=== PATIENT | female | born 1980 | race Caucasian/White ===

== ENCOUNTER → 2018-07-09 | Outpatient (CLI) | payer OTHER ==
--- NOTE | 2018-07-09 10:38 | Diagnostic Imaging Report ---
INDICATION: Neck pain and arm tingling. TIME OF EXAMINATION: 10:13 AM. FINDINGS: The curvature and alignment of the cervical spine are normal. C1 through C6 are identified with clarity. C7 and the cervicothoracic junction are not well seen on these images. The odontoid is intact. The prevertebral tissues are normal. No fractures are seen. IMPRESSION: No acute abnormality is detected. Dictated by: Dictated on workstation # [id number]
== END ==
LOC: RAD FS 10:00
PROVIDERS: ATTEND Family Medicine
DX: M54.2 Cervicalgia (principal)
CPT/HCPCS: 72040

== ENCOUNTER → 2019-03-27 | Outpatient (CLI) | payer OTHER ==
--- NOTE | 2019-03-27 14:53 | Diagnostic Imaging Report ---
PROCEDURE: MR imaging of the cervical spine without contrast. TECHNIQUE: Multiplanar, multisequence MR imaging of the cervical spine was performed without contrast. INDICATION: Neck pain and tingling. COMPARISON: No prior studies are available for comparison. FINDINGS: Alignment of the cervical spine is normal. The marrow signal intensity is unremarkable. Disc spaces are fairly well maintained. Minimal disc desiccation is seen at multiple levels. Cervical cord does show normal homogeneous signal intensity and normal morphology. Craniocervical junction is unremarkable. No focal disc protrusion is seen. No central canal or neural foraminal stenosis is identified. Paraspinous tissues are unremarkable. IMPRESSION: Unremarkable MRI of the cervical spine. No focal disc protrusion, central canal or neural foraminal stenosis is detected. Dictated by: Dictated on workstation # [id number]
== END ==
LOC: RAD 12:17
PROVIDERS: ATTEND Nurse Practitioner
DX: M50.30 Other cervical disc degeneration, unspecified cervical region (principal)
CPT/HCPCS: 72141

== ENCOUNTER 2019-05-12 15:22 | Emergency (ER) | payer OTHER ==
[~2019-05-12] VITALS: Ht 155 cm; Wt 66.3 kg
--- NOTE | 2019-05-12 15:57 | ED Back Pain ---
General Chief Complaint: Back Problems Stated Complaint: UPPER BACK PAIN,SOA Nursing Triage Note: Has had upper back pain that has been getting progressively worse over the past sevral weeks. Pain is currently rated at 6/10. Has also been mildly short off breath for the past two days. Saw a neurologist last week for some neck tingling and was recommended to do physical therapy. Nursing Sepsis Screen: No Definite Risk History of Present Illness Date Seen by Provider: May 12, 2019 Time Seen by Provider: 15:51 Initial Comments 38-year-old female reports several weeks of thoracic back pain from a particular spot in the midline denies fall or injury, is unaware of any relevant history no chest pain there may be slight shortness of breath, she feels this pain when she takes a deep breath has had some nausea but no vomiting or diarrhea or abdominal pain she's had no fever or cough Allergies and Home Medications Allergies Coded Allergies: Iodinated Contrast Media (Verified Allergy, Unknown, 05/12/19) Penicillins (Verified Allergy, Unknown, 05/12/19) erythromycin base (Verified Allergy, Unknown, 05/12/19) morphine (Verified Allergy, Unknown, 05/12/19) Patient Home Medication List Home Medication List Reviewed: Yes Review of Systems Constitutional: No fever EENTM: no symptoms reported; No throat pain Respiratory: No cough; short of breath (maybe minimal) Cardiovascular: No chest pain, No palpitations, No syncope Gastrointestinal: No abdominal pain, No diarrhea, No vomiting Genitourinary: No no symptoms reported Past Akalanb-Rhbchp-Gqmqxm Hx Patient Social History Alcohol Use: Denies Use Recreational Drug Use: No Smoking Status: Never a Smoker 2nd Hand Smoke Exposure: No Recent Foreign Travel: No Contact w/Someone Who Travel: No Recent Infectious Disease Expo: No Recent Hopitalizations: No Seasonal Allergies Seasonal Allergies: No Past Medical History Surgeries: Yes Hysterectomy Respiratory: No Cardiac: No Neurological: No Genitourinary: No Gastrointestinal: No Musculoskeletal: No Endocrine: Yes Hypothyroidsim HEENT: No Integumentary: No Physical Exam Vital Signs Vital Signs - First Documented 05/12/19 15:30 Temp 36.8 Pulse 102 Resp 16 B/P (MAP) 147/80 (102) Pulse Ox 99 Capillary Refill : Less Than 3 Seconds Height, Weight, BMI Height: '" Weight: lbs. oz. kg; 27.00 BMI Method: General Appearance: No Apparent Distress, Anxious HEENT: PERRL/EOMI, Pharynx Normal Neck: Supple Cardiovascular: Regular Rate, Rhythm Respiratory: Lungs Clear, Normal Breath Sounds Gastrointestinal: Non Tender, Soft Back: Other (normal except slight tenderness in the midline over lower thoracic) Extremity: Normal Inspection, Non Tender; No Pedal Edema Neurologic/Psychiatric: Alert, Oriented x3 Progress/Results/Core Measures Results/Orders Lab Results Laboratory Tests Test 05/12/19 15:50 Range/Units White Blood Count 5.1 4.3-11.0 10^3/uL Red Blood Count 4.28 L 4.35-5.85 10^6/uL Hemoglobin 13.0 11.5-16.0 G/DL Hematocrit 39 35-52 % Mean Corpuscular Volume 92 80-99 FL Mean Corpuscular Hemoglobin 30 25-34 PG Mean Corpuscular Hemoglobin Concent 33 32-36 G/DL Red Cell Distribution Width 12.3 10.0-14.5 % Platelet Count 236 130-400 10^3/uL Mean Platelet Volume 10.9 H 7.4-10.4 FL Neutrophils (%) (Auto) 62 42-75 % Lymphocytes (%) (Auto) 28 12-44 % Monocytes (%) (Auto) 8 0-12 % Eosinophils (%) (Auto) 1 0-10 % Basophils (%) (Auto) 1 0-10 % Neutrophils # (Auto) 3.2 1.8-7.8 X 10^3 Lymphocytes # (Auto) 1.4 1.0-4.0 X 10^3 Monocytes # (Auto) 0.4 0.0-1.0 X 10^3 Eosinophils # (Auto) 0.1 0.0-0.3 10^3/uL Basophils # (Auto) 0.0 0.0-0.1 10^3/uL Sodium Level 139 135-145 MMOL/L Potassium Level 3.8 3.6-5.0 MMOL/L Chloride Level 102 98-107 MMOL/L Carbon Dioxide Level 26 21-32 MMOL/L Anion Gap 11 5-14 MMOL/L Blood Urea Nitrogen 11 7-18 MG/DL Creatinine 0.68 0.60-1.30 MG/DL Estimat Glomerular Filtration Rate > 60 BUN/Creatinine Ratio 16 Glucose Level 108 H 70-105 MG/DL Calcium Level 9.3 8.5-10.1 MG/DL Corrected Calcium 8.9 8.5-10.1 MG/DL Total Bilirubin 0.4 0.1-1.0 MG/DL Aspartate Amino Transf (AST/SGOT) 13 5-34 U/L Alanine Aminotransferase (ALT/SGPT) 12 0-55 U/L Alkaline Phosphatase 68 40-136 U/L Troponin I < 0.30 <0.30 NG/ML Total Protein 7.4 6.4-8.2 GM/DL Albumin 4.5 3.2-4.5 GM/DL Lipase 20 8-78 U/L My Orders Orders - JO ANN DE LA O MD Thoracic Spine 3v Ap Lat Swim (05/12/19 15:48) Chest Pa/Lat (2 View) (05/12/19 15:48) Cbc With Automated Diff (05/12/19 15:48) Troponin I Fs (05/12/19 15:48) Comprehensive Metabolic Panel (05/12/19 15:48) Lipase (05/12/19 15:48) Vital Signs/I&O 05/12/19 15:30 Temp 36.8 Pulse 102 Resp 16 B/P (MAP) 147/80 (102) Pulse Ox 99 Blood Pressure Mean: 102 Progress Progress Note : Progress Note chest x-ray and T-spine are both reported as normal EKG shows a sinus rhythm at 88 no acute changes CBC normal CMP and trop negative/normal Departure Impression Primary Impression: Back strain of thoracic region Qualified Codes: S29.019A - Strain of muscle and tendon of unspecified wall of thorax, initial encounter Disposition: 01 HOME, SELF-CARE Condition: Stable Departure-Patient Inst. Decision time for Depature: 16:32 Referrals: AMELIE BOWERS MD (PCP/Family) Primary Care Physician Patient Instructions: Upper Back Pain (DC) Add. Discharge Instructions: Would go ahead with an anti-inflammatory such as ibuprofen routinely for several days And recommend a muscle relaxer at bedtime and then follow up with primary doctor if not Might also try physical measures such as heat or ice to see if either are helpful Scripts Cyclobenzaprine HCl (Cyclobenzaprine HCl) 10 Mg Tablet 10 MG PO HS for 10 Days, TAB Prov: JO ANN DE LA O MD 05/12/19 JO ANN DE LA O MD May 12, 2019 15:57
[2019-05-12 16:08] LABS: HEMATOCRIT 39 % (35-52); LYMPHOCYTES % (AUTO) 28 % (12-44); MEAN CORPUSCULAR HEMOGLOBIN 30 PG (25-34); MEAN CORPUSCULAR HGB CONC 33 G/DL (32-36); MEAN CORPUSCULAR VOLUME 92 FL (80-99); MEAN PLATELET VOLUME 10.9 FL (7.4-10.4); MONOCYTES % (AUTO) 8 % (0-12); NEUTROPHILS % (AUTO) 62 % (42-75); PLATELET COUNT 236 10^3/uL (130-400); RED CELL DISTRIBUTION WIDTH 12.3 % (10.0-14.5); WHITE BLOOD COUNT 5.1 10^3/uL (4.3-11.0)
[2019-05-12 16:09] LABS: BASOPHILS % (AUTO) 1 % (0-10); EOSINOPHILS # (AUTO) 0.1 10^3/uL (0.0-0.3); EOSINOPHILS % (AUTO) 1 % (0-10); LYMPHOCYTES # (AUTO) 1.4 X 10^3 (1.0-4.0); MONOCYTES # (AUTO) 0.4 X 10^3 (0.0-1.0); NEUTROPHILS # (AUTO) 3.2 X 10^3 (1.8-7.8)
--- NOTE | 2019-05-12 16:14 | Diagnostic Imaging Report ---
EXAMINATION: Chest 2 view HISTORY: Upper back pain. COMPARISON: None available. FINDINGS: The lung volumes are normal. No focal consolidation is seen. No large pleural effusion or pneumothorax is seen. The cardiomediastinal silhouette is normal in size and contour. No acute osseous abnormality is seen. IMPRESSION: 1. No acute pleuroparenchymal process. Dictated by: Dictated on workstation # [id number]
--- NOTE | 2019-05-12 16:15 | Diagnostic Imaging Report ---
CLINICAL HISTORY: Upper back pain. COMPARISON: None TECHNIQUE: 3 views of the thoracic spine. FINDINGS: There is no acute fracture or dislocation of the thoracic spine. Alignment is anatomic. Vertebral body heights and disc spaces are well-maintained. The included lungs are clear. The included soft tissues of the thoracic spine demonstrate no acute abnormalities. IMPRESSION: 1. No acute fracture or dislocation in the thoracic spine. Dictated by: Dictated on workstation # [id number]
[2019-05-12 16:25] LABS: ALANINE AMINOTRANSFERASE 12 U/L (0-55); ALKALINE PHOSPHATASE 68 U/L (40-136); BILIRUBIN,TOTAL 0.4 MG/DL (0.1-1.0); BUN/CREATININE RATIO 16; CALCIUM 9.3 MG/DL (8.5-10.1); CARBON DIOXIDE 26 MMOL/L (21-32); CHLORIDE 102 MMOL/L (98-107); CREATININE SERUM 0.68 MG/DL (0.60-1.30); GFR ESTIMATED > 60; GLUCOSE 108 MG/DL (70-105); POTASSIUM 3.8 MMOL/L (3.6-5.0); SODIUM 139 MMOL/L (135-145); TOTAL PROTEIN 7.4 GM/DL (6.4-8.2)
[2019-05-12 16:26] LABS: ALBUMIN 4.5 GM/DL (3.2-4.5); LIPASE 20 U/L (8-78)
[2019-05-12] MEDS ORDERED: CYCL10TA9 PO (16:35)
[2019-05-12 16:39] VITALS: BP 118/68
== END 2019-05-12 16:46 | disposition home or self-care (01) ==
LOC: EDUNIT# 15:22 → ER FS 15:23
DX: S29.012A Strain of muscle and tendon of back wall of thorax, initial encounter (principal); Z88.0 Allergy status to penicillin; Z88.5 Allergy status to narcotic agent; Z88.1 Allergy status to other antibiotic agents; Z91.041 Radiographic dye allergy status; X58.XXXA Exposure to other specified factors, initial encounter
CPT/HCPCS: 36415; 71046; 72072; 80053; 83690; 84484; 85025; 93005